=== PATIENT | male | born 1960 | race Caucasian/White ===

== ENCOUNTER 2020-02-17 10:46 | Emergency (ER) | payer BC, SELFPAY ==
[2020-02-17 10:57] VITALS: BP 179/92; PULSE 87; RESP 20; TEMP 37.1; O2SAT 96
--- NOTE | 2020-02-17 11:03 | ED.BACK ---
HPI - Back Pain/Injury General Chief Complaint: Back Pain/Injury Stated Complaint: back pain Source: patient Mode of arrival: ambulatory Limitations: no limitations History of Present Illness HPI Narrative: The patient, who is a smoker/drinker with hypertension, HLD, presents with left low back pain. Patient states he has a 1 month history of gradual onset of left low back pain that he attributes to beginning when he got up from a couch. No fever, hematuria/frequency/dysuria/urgency, numbness/weakness, radiating pain, abdominal/ testicular pain, N/V. Symptoms are mild, waxing and waning and actually improved today, after having about 1/2-week course of a 10-day prescribed 40 mg/day prednisone. It is similar to prior back and hip pain but more persistent which used to be responsive to meloxicam, and he would like stronger pain medicines which doctor wont prescribe by phone. Related Data Home Medications Medication Instructions Recorded Confirmed hydrochlorothiazide 12.5 mg PO DAILY 02/17/20 02/17/20 meloxicam 7.5 mg PO DAILY 02/17/20 02/17/20 metoprolol succinate 100 mg PO DAILY 02/17/20 02/17/20 prednisone 20 mg PO BID 02/17/20 02/17/20 rosuvastatin [Crestor] 5 mg PO DAILY 02/17/20 02/17/20 Allergies Allergy/AdvReac Type Severity Reaction Status Date / Time lisinopril Allergy Other Verified 02/17/20 10:55 Review of Systems Review of Systems: Narrative: General/Constitutional: No weight loss,fever Eyes: N0: Redness,discharge Ears/Nose/Throat: No: Epistaxis,ear discharge Respiratory: Denies: Hemoptysis Gastrointestinal: No Vomiting, Bleeding-rectal Skin: No Lumps, eruption Neurologic: No Focal Weakness,Sz Hematologic: Denies: Petechiae/Purpura Psychiatric: No: Suicida ideationl All Other Systems: Reviewed and Negative PMFSH Comments At time of signature, agree with nursing past medical, surgical, social and family history. There is no relevant family history pertinent to the presenting complaint Exam Narrative: Exam Narrative: General Appearance: Well appearing, Obese/ Well nourished EYE: PERRLA, Conjunctiva clear Ears: External ear normal Nose: Normal nose Mouth/Throat: Normal appearing, Normal lips Neck: Supple Respiratory: Airway patent Abdomen: Soft, NT no abdominal mass Musculoskeletal: Normal strength (no footdrop, 5/5 : EH L-FHL, gastroc-AT, no saddle weakness) Spine/Back: L. Paraspinal muscle tender (with mild decreased range of motion;tender left posterior superior iliac crest) Skin: Normal color Neurological: A&O x3, CN II-XII intact, Normal reflexes (symmetric, 2+ KJ, AJ) Psychiatric: Normal mood Course Vital Signs Vital signs: Vital Signs Temperature 98.7 F 02/17/20 10:57 Pulse Rate 87 02/17/20 10:57 Respiratory Rate 02/17/20 10:57 Blood Pressure 179/92 H 02/17/20 10:57 Pulse Oximetry 96 02/17/20 10:57 Temperature 98.7 F 02/17/20 10:57 Pulse Rate 87 02/17/20 10:57 Respiratory Rate 02/17/20 10:57 Blood Pressure 179/92 H 02/17/20 10:57 Pulse Oximetry 96 02/17/20 10:57 Discharge Plan Discharge Clinical Impression: Chronic left-sided low back pain Qualifiers: Sciatica presence: without sciatica Qualified Code(s): M54.5 - Low back pain Patient Disposition: Home, Self-Care Condition: Stable Instructions: Back Pain (ED) Additional Instructions: Advised to go to higher-level care facility to higher level testing , because for early diagnosis of serious problems [kidney stone, etc], clear specific symptoms do not develope until later Prescriptions: New acetaminophen-codeine [Tylenol-Codeine #3] 300-30 mg tablet 1 tablet PO HS PRN (Reason: pain) Qty: 14 RF: 0 tramadol 50 mg tablet 50 mg PO Q6H PRN (Reason: pain) Qty: 15 RF: 1 No Action prednisone 20 mg Tablet 20 mg PO BID RF: 0 metoprolol succinate 100 mg Tablet Extended Release 24 Hr 100 mg PO DAILY RF: 0 meloxicam 7.5 mg Tablet 7.5 m
== END 2020-02-17 11:39 | disposition home or self-care (01) ==
PROVIDERS: Emergency Provider Emergency Medicine
DX: M54.5 Low back pain (principal); F17.200 Nicotine dependence, unspecified, uncomplicated; I10 Essential (primary) hypertension; E78.5 Hyperlipidemia, unspecified
CPT/HCPCS: 99213; G0463

== ENCOUNTER 2021-03-08 12:48 | Emergency (ER) | payer BC, SELFPAY ==
--- NOTE | ~2021-03-08 | XR_ITS ---
EXAMINATION: XR shoulder RT min 2V INDICATION: Right shoulder pain TECHNIQUE: Four views of the right shoulder are submitted. COMPARISON: None FINDINGS: Normal alignment. No fracture. There is moderate osteoarthritis of the glenohumeral and acr omioclavicular joints. Soft tissues are unremarkable. IMPRESSION: 1. No acute osseous abnormality. Reviewed, dictated and finalized at location A.
[2021-03-08 12:56] VITALS: BP 181/90; PULSE 65; RESP 12; TEMP 36.9; O2SAT 98
--- NOTE | 2021-03-08 12:58 | ED.UPPEXIN ---
HPI - Extremity Injury (Upper) General Chief Complaint: Extremity Injury, Upper Stated Complaint: rt shoulder injury Time Seen by Provider: 03/08/21 12:58 Source: patient, RN notes reviewed and old records reviewed Mode of arrival: ambulatory Limitations: no limitations History of Present Illness HPI narrative: 60 year old male who presents to [facility] care with complaints of pain to his right shoulder which occurred after fall in his garage last evening onto right shoulder. Patient has pain to AC joint region and to anterior aspect of his right shoulder region. Patient is unable to move his right arm on own power, can passively move with assistance of left arm with increase in pain with forward movement of arm. Patient reports no tingling or numbness to his arm or his right hand, strong brachial and radial pulses to right arm with brisk capillary refill of his right finger nail beds. Patient reports that he has used ice and Tylenol with minimal pain decrease. Patient reports his pain to be 9/10 with pain described as sharp and intermittent with increase with any movement of right arm or shoulder. MD complaint: injury to: right and shoulder Onset (ago): day(s) (1) Other Extremity Injury: Right: shoulder Place: home Related Data Home Medications Medication Instructions Recorded Confirmed hydrochlorothiazide 12.5 mg PO DAILY 02/17/20 03/08/21 meloxicam 7.5 mg PO DAILY 02/17/20 03/08/21 metoprolol succinate 100 mg PO DAILY 02/17/20 03/08/21 prednisone 20 mg PO BID 02/17/20 03/08/21 rosuvastatin [Crestor] 5 mg PO DAILY 02/17/20 03/08/21 Allergies Allergy/AdvReac Type Severity Reaction Status Date / Time lisinopril Allergy Other Verified 03/08/21 12:55 Review of Systems Review of Systems: CONSTITUTIONAL: Denies fever, chills, or sweats. EYES: Denies visual changes, redness, or discharge. ENT: Denies rhinorrhea, congestion, sore throat, or otalgia. CARDIOVASCULAR: Denies chest pain, palpitations, or edema. RESPIRATORY: Denies cough or dyspnea. GASTROINTESTINAL: Denies abdominal pain, nausea, vomiting, or diarrhea. GENITOURINARY: Denies dysuria or hematuria. SKIN: Denies rash or itching. MUSCULOSKELETAL: Denies back pain,positive pain to right shoulder , or myalgia. NEUROLOGIC: Denies headache, numbness, or weakness. PSYCHIATRIC: Denies anxiety or depression. All systems reviewed & are unremarkable except as noted in HPI and below PMFSH Past Medical History Medical History (Updated 03/09/21 @ 00:01 by Bossman Traore) Arthritis Elevated cholesterol Hypertension Surgical History Surgical History (Updated 03/10/21 @ 16:38 by Gita Chatterjee NP) H/O inguinal hernia repair History of orchiectomy for testicular torsion Family History Family History (Updated 03/10/21 @ 16:43 by Gita Chatterjee NP) Mother Lung cancer Sibling Acute myocardial infarction Breast cancer Hypertension Father Hypertension Social History Social History (Updated 03/08/21 @ 13:52 by Gita Chatterjee NP) Smoking packs per day: 1.5 Smoking cigarettes per day: 30.0 Years smoked: 40 Smoking pack-years: 60.00 Smoking status: Current every day smoker Alcohol intake: current Substance use: never Gender identity (if verbalized by the patient): Male Comments At time of signature, agree with nursing past medical, surgical, social and family history. There is no relevant family history pertinent to the presenting complaint Exam Narrative: GENERAL: Well-appearing, well-nourished, and in no acute distress. HEAD: Normocephalic, atraumatic. EYES: PERRLA and EOMI. ENT: Nares clear, no rhinorrhea or epistaxis. Mucous membranes moist.TM's normal with good light reflex, throat pink with no exudates or lesions or tonsil enlargement. NECK: Supple.no lymphadenopathy CHEST: Clear to auscultation. No respiratory distress.SAO2 98% on room air HEART: Regular rate and rhythm. No murmur heard. Normal peripheral pulses. ABDOMEN:
== END 2021-03-08 14:11 | disposition home or self-care (01) ==
PROVIDERS: Emergency Provider Registered Nurse
DX: M25.511 Pain in right shoulder (principal); W19.XXXA Unspecified fall, initial encounter; M19.90 Unspecified osteoarthritis, unspecified site; E78.00 Pure hypercholesterolemia, unspecified; I10 Essential (primary) hypertension; F17.210 Nicotine dependence, cigarettes, uncomplicated
CPT/HCPCS: 73030; 99213; G0463

== ENCOUNTER → 2021-06-06 16:45 | Outpatient (CLI) | payer BC, SELFPAY ==
--- NOTE | ~2021-06-06 | MR_ITS ---
EXAMINATION: MR shoulder RT wo con DATE: 06/06/2021 17:32 INDICATION: Sprain of the right rotator cuff capsule presenting with 3 months of right shoulder pain post fall. TECHNIQUE: Magnetic resonance imaging (MRI) of the right shoulder was performed without intravenous c ontrast. Sequences included axial PD-weighted FS FSE, coronal oblique PD-weighted FS FSE, coronal obl ique T2-weighted FS FSE, sagittal PD-weighted FS FSE, and sagittal T1-weighted SE. COMPARISON: None. FINDINGS: Coracoacromial arch: The acromion undersurface is curved in morphology (type II). There is mild thickening of the coracoac romial ligament at its acromial attachment where it measures up to 4-5 mm in thickness and where it f lattens the bursal contour of the underlying posterior supraspinatus tendon. Moderate acromioclavicul ar osteoarthritis. Rotator cuff: Posterior supraspinatus and mild infraspinatus tendinopathy. Thin linear tract of fluid signal intens ity can be seen extending across a small full-thickness tear approximately 1 cm from the footplate of the distal supraspinatus tendon. The intrasubstance portion of the tear measures approximately 5 mm AP of the articular and bursal sides tear appear no greater than 1-2 mm in diameter. The teres minor tendon is normal. Mild subscapularis tendinopathy without discrete tear. Normal rotator cuff muscle b ulk and signal. Biceps tendon, glenoid labrum and glenohumeral cartilage: Long head of the biceps tendon is normal. Degenerative tearing involving the inferior half of the gle noid labrum. There appears be an associated GLAD lesion at the anteroinferior glenoid with a nondispl aced chondral flap tear extending up to 1 cm centrally from the rim of the glenoid at the 4:00-5:00 p osition. Full-thickness cartilage loss with smooth chondral surface along the medial and anterosuperi or aspects of the humeral head. Fluid: Disproportion small amount of fluid in the long head biceps tendon sheath relative to the physiologic amount fluid in the glenohumeral joint space consistent with mild bicipital tenosynovitis. There is small amount of fluid with synovitis in the subacromial/subdeltoid bursa consistent with mild to mode rate bursitis. No loose osteochondral bodies. Bones: Normal marrow signal with no fracture or pathologic marrow replacing process. Prominent cystic change underlying the superior facet of the greater tuberosity likely related to rotator cuff disease. IMPRESSION: 1. Moderate supraspinatus tendinopathy with very small full-thickness tear. 2. Mild glenohumeral osteoarthritis with degenerative tearing of the inferior half the glenoid labrum as well as a glenolabral articular disruption GLAD lesion at the anteroinferior glenoid. 3. Moderate to severe acromioclavicular osteoarthritis. 4. Mild to moderate subacromial subdeltoid bursitis. 5. Mild bicipital tenosynovitis with normal long head biceps tendon. Reviewed, dictated and finalized at location A. IMPRESSION: 1. Moderate supraspinatus tendinopathy with very small full-thickness tear. 2. Mild glenohumeral osteoarthritis with degenerative tearing of the inferior [facility] [place] the glenoid labrum as well as a glenolabral articular disruption GLAD lesio n at the anteroinferior glenoid. 3. Moderate to severe acromioclavicular osteoarthritis. 4. Mild to moderate subacromial subdeltoid bursitis. 5. Mild bicipital tenosynovitis with normal long head biceps tendon.
== END ==
PROVIDERS: Visit Provider Orthopaedic Surgery
DX: M75.111 Incomplete rotator cuff tear or rupture of right shoulder, not specified as traumatic (principal); M19.011 Primary osteoarthritis, right shoulder; M75.51 Bursitis of right shoulder
CPT/HCPCS: 73221

== ENCOUNTER 2022-10-07 12:52 | Emergency (ER) | payer BC, SELFPAY ==
--- NOTE | ~2022-10-07 | CT_ITS ---
EXAMINATION: CT brain wo con DATE: 10/07/2022 14:11 INDICATION: Head injury TECHNIQUE: Computed tomography (CT) of the head was performed without intravenous contrast. Sagittal and coronal reconstructions were performed. The mA was adjusted according to patient size. Iterative reconstruction technique was employed. The dose-length product was 605.33 mGy-cm. COMPARISON: None FINDINGS: No fracture. No acute intracranial hemorrhage, acute infarction or abnormal extra axial fluid collect ion. Ventricles are normal and symmetric. No mass/mass effect. Mild mucosal thickening in the ethmoid sinuses. The orbits, paranasal sinuses and mastoid air cells are normal. IMPRESSION: 1. No fracture or acute intracranial process. Reviewed, dictated and finalized at location A. [employer]
[2022-10-07 13:16] VITALS: BP 160/96; PULSE 75; RESP 18; TEMP 36.4; O2SAT 97
[2022-10-07] MEDS: TETANUS,DIPHTHERIA,AC PERTUSSIS ADULT (0.5 ML) BOOSTRIX IM (14:42)
--- NOTE | 2022-10-07 14:51 | ED.WOUNDLAC ---
HPI - Wound/Laceration General Chief Complaint: Wound/Laceration Stated Complaint: head laceration Time Seen by Provider: 10/07/22 13:17 Source: patient Mode of arrival: ambulatory Limitations: no limitations History of Present Illness HPI narrative: This is a 62 year old male that presents to the ER after a head injury today with laceration. Reports a concrete block of a fountain he was working on fell off and hit him in the back of the head. He did not lose consciousness. He is not up to date on tetanus. Denies vision changes, vomiting, numbness or weakness. Related Data Home Medications Medication Instructions Recorded Confirmed hydrochlorothiazide 12.5 mg capsule 12.5 mg PO DAILY 02/17/20 06/13/21 meloxicam 7.5 mg tablet 7.5 mg PO DAILY 02/17/20 06/13/21 metoprolol succinate 100 mg 100 mg PO DAILY 02/17/20 06/13/21 tablet,extended release 24 hr rosuvastatin 5 mg tablet (Crestor) 5 mg PO DAILY 02/17/20 06/13/21 acetaminophen 325 mg tablet 325 mg PO Q6H PRN 03/12/21 06/13/21 (Tylenol) Allergies Allergy/AdvReac Type Severity Reaction Status Date / Time lisinopril Allergy Other Verified 06/13/21 09:12 Review of Systems Review of Systems: CONSTITUTIONAL: Denies fever EYES: Denies visual changes GASTROINTESTINAL: Denies vomiting NEUROLOGIC: Reports headache. Denies numbness, or weakness. All systems reviewed & are unremarkable except as noted in HPI and below PMFSH Past Medical History Medical History Arthritis Elevated cholesterol Hypertension Surgical History Surgical History H/O inguinal hernia repair History of orchiectomy for testicular torsion Family History Family History Mother Lung cancer Sibling Acute myocardial infarction Breast cancer Hypertension Father Hypertension Social History Social History Smoking packs per day: 1.5 Smoking cigarettes per day: 30.0 Years smoked: 40 Smoking pack-years: 60.00 Alcohol intake: current Substance use: never Living arrangements: with family Gender identity (if verbalized by the patient): Male Exam Narrative: GENERAL: Well-appearing, well-nourished, and in no acute distress. HEAD: Normocephalic. 1.5 cm linear laceration into subcutaneous tissue to the posterior scalp EYES: PERRLA and EOMI. ENT: Nares clear, no rhinorrhea or epistaxis. Mucous membranes moist. Oropharynx without tonsillar hypertrophy exudate or other lesions. Bilateral TMs pearly castillo non-bulging NECK: Supple. No adenopathy or masses. No midline cervical spine tenderness CHEST: Clear to auscultation. No respiratory distress. No wheezes rales or rhonchi HEART: Regular rate and rhythm. No murmur heard. Normal peripheral pulses. EXTREMITIES: Normal range of motion. No edema. SKIN: Warm, dry, no rash. NEURO: No focal deficits. Alert and oriented x3. Cranial nerves II through XII grossly intact PSYCH: Normal mood and affect Course Vital Signs Vital signs: Vital Signs Temperature 97.5 F L 10/07/22 13:16 Pulse Rate 75 10/07/22 13:16 Respiratory Rate 18 10/07/22 13:16 Blood Pressure 160/96 H 10/07/22 13:16 Pulse Oximetry 97 10/07/22 13:16 Oxygen Delivery Room Air 10/07/22 13:16 Temperature 97.5 F L 10/07/22 13:16 Pulse Rate 75 10/07/22 13:16 Respiratory Rate 18 10/07/22 13:16 Blood Pressure 160/96 H 10/07/22 13:16 Pulse Oximetry 97 10/07/22 13:16 Oxygen Delivery Room Air 10/07/22 13:16 Procedures Laceration Laceration 1: Date: 10/07/22 Time: 14:55 Site: scalp Size (cm): 1.5 Description: linear Depth: simple, single layer Local Anesthetic: none Pre-repair: irrigated ====== Skin Level ====== Skin layer closed with: staple
== END 2022-10-07 15:00 | disposition home or self-care (01) ==
PROVIDERS: Emergency Provider Physician Assistant
DX: S01.01XA Laceration without foreign body of scalp, initial encounter (principal); Z23 Encounter for immunization; I10 Essential (primary) hypertension; E78.00 Pure hypercholesterolemia, unspecified; F17.210 Nicotine dependence, cigarettes, uncomplicated; W20.8XXA Other cause of strike by thrown, projected or falling object, initial encounter
CPT/HCPCS: 12001; 70450; 90471; 90715; 96372; 99284